=== PATIENT | male | born 1995 | race Caucasian/White ===

== ENCOUNTER 2023-01-27 22:29 | Emergency (ER) | payer OTHER ==
[2023-01-27 22:40] VITALS: TEMP 98
--- NOTE | 2023-01-27 22:58 | ED ---
General Adult HPI - General Chief complaint: Overdose Stated complaint: Overdose Time Seen by Provider: 01/27/23 22:47 Source: patient, RN notes reviewed, old records reviewed Mode of arrival: EMS Limitations: no limitations - History of Present Illness Initial comments: Patient is a 27-year-old male who presents emergency Department complaining of a opiate overdose. Took what he believes were 2 tabs 30 milligram Percocets, however he became unresponsive. EMS was called and they administered Narcan which did help the patient. He is currently back to his normal baseline mental status. Alert and oriented 4. States he did have one drink of alcohol earlier but no other drugs. Like to go home at this time. States he has Narcan at home. Denies any shortness of breath. He is not requiring any oxygen. Denies any chest pain, shortness breath, abdominal pain, nausea, vomiting.Patient states the 2 Percocets were not taken as a suicide attempt. Denies any suicidal ideations, attempts complaints. Denies any homicidal ideations, attempts, plans. Denies any hallucinations. - Related Data Allergies Allergy/AdvReac Type Severity Reaction Status Date / Time No Known Allergies Allergy Verified 01/27/23 22:40 Review of Systems ROS Statement: Those systems with pertinent positive or pertinent negative responses have been documented in the HPI. Review of Systems: CONST: Denies fever EYES: Denies blurry vision ENT: Denies nasal congestion C/V: Denies Chest pain RESP: Denies shortness of breath GI: Denies abdominal pain : Denies dysuria SKIN: Denies rash. MSK: Denies joint pain. NEURO: Denies headache ROS Other: All systems not noted in ROS Statement are negative. Past Medical History Past Medical History: Asthma Additional Past Medical History / Comment(s): hepatitis c History of Any Multi-Drug Resistant Organisms: None Reported Past Surgical History: No Surgical Hx Reported Past Psychological History: ADD/ADHD, Anxiety Smoking Status: Current every day smoker, Vaper Past Alcohol Use History: Occasional Past Drug Use History: Marijuana, Opiates General Exam - General Exam Comments Initial Comments: General: Appears in no acute distress. HEAD: Normal with no signs of head trauma. EYES: PERRLA, EOMI, conjunctiva normal, no discharge. Pupils are 1-2 mm and equal bilaterally. ENT: Hearing grossly intact, normal oropharynx. RESPIRATORY: Clear breath sounds bilaterally. No wheezes, rales, or rhonchi. No hypoxia. No respiratory distress. C/V: Regular rate and rhythm. S1 and S2 auscultated. Peripheral pulses 2+ intact throughout. ABD: Abd is soft, nontender, nondistended EXT: Normal range of motion, no obvious deformity SKIN: No rashes or lesions observed on exposed skin. NEURO: Alert and oriented 4. Limitations: no limitations Course Vital Signs 01/27/23 01/27/23 01/27/23 22:36 22:48 23:04 Temperature 98 F Pulse Rate 99 86 68 Respiratory 20 20 18 Rate Blood Pressure 126/84 124/86 134/60 O2 Sat by Pulse 98 96 98 Oximetry Medical Decision Making - Medical Decision Making Was pt. sent in by a medical professional or institution (, PA, BOOT MAKER, urgent care, hospital, or halfway...) When possible be specific @ -No Did you speak to anyone other than the patient for history (EMS, parent, family, police, friend...)? What history was obtained from this source @ -No Did you review nursing and triage notes (agree or disagree)? Why? @ -I reviewed and agree with nursing and triage notes Were old charts reviewed (outside hosp., previous admission, EMS record, old EKG, old radiological studies, urgent care reports/EKG's, halfway records)? Report findings @ -No old charts were reviewed Differential Diagnosis (chest pain, altered mental status, abdominal pain women, abdominal pain men, vaginal bleeding, weakness, fever, dyspnea, syncope, headache, dizziness, GI bleed, back pain, seizure, CVA, palpatations, mental health, musculoskeletal)? @ -Opiate overdose, accidental overdose, substance abuse, this list is not all- inclusive. EKG interpreted by me (3pts min.). @ -None done X-rays interpreted by me (1pt min.). @ -None done CT interpreted by me (1pt min.). @ -None done U/S interpreted by me (1pt. min.). @ -None done What testing was considered but not performed or refused? (CT, X-rays, U/S, labs)? Why? @ -Patient refusing testing as well as observation. What meds were considered but not given or refused? Why? @ -None Did you discuss the management of the patient with other professionals (professionals i.e. , PA, BOOT MAKER, lab, RT, psych nurse, social insurance analyst, camera tuning engineer, teacher, health promotion officer, clinical case manager)? Give summary @ -No Was smoking cessation discussed for >3mins.? @ -No Was critical care preformed (if so, how long)? @ -No Were there social determinants of health that impacted care today? How? (Homelessness, low income, unemployed, alcoholism, drug addiction, transportation, low edu. Level, literacy, decrease access to med. care, fdc, rehab)? @ -No Was there de-escalation of care discussed even if they declined (Discuss DNR or withdrawal of care, Hospice)? DNR status @ -No What co-morbidities impacted this encounter? (DM, HTN, Smoking, COPD, CAD, Cancer, CVA, ARF, Chemo, Hep., AIDS, mental health diagnosis, sleep apnea, morbid obesity)? @ -None Was patient admitted / discharged? Hospital course, mention meds given and route, prescriptions, significant lab abnormalities, going to OR and other pertinent info. @ -Based on the patient's presentation and physical exam, I do believe he likely had an acute opiate overdose occurring Narcan administration. He is currently back to his normal baseline mental status with no deficits. Ambulates without difficulty. States he is Narcan at home and does not want to wait here in the department for evaluation. BAT is 0. His no other acute complaints at this time. I did discuss with him that I would like him to remain here in the department for at least 1-2 hours to observe for any symptoms when the Narcan does wear off but he refuses at this time. We did discuss the risks involved. He would like to leave AGAINST MEDICAL ADVICE. Patient is not requiring any oxygen, is in no respiratory distress with normal vital signs. He is alert and oriented 4. Not a danger to himself or other. No concern for suicide attempt at this time. The patient was apprised of the potential risks of leaving the hospital AGAINST MEDICAL ADVICE, including serious complications, permanent disability, and . At the time of my interview the patient, the patient was alert, oriented, and capable. Patient signed AMA form, which was witnessed and signed by nursing staff, and placed in patient's chart. I urged the patient to return to the hospital as soon as possible to complete evaluation and treatment. Undiagnosed new problem with uncertain prognosis? @ -No Drug Therapy requiring intensive monitoring for toxicity (Heparin, Nitro, Insulin, Cardizem)? @ -No Were any procedures done? @ -No Diagnosis/symptom? @ -Opiate overdose Acute, or Chronic, or Acute on Chronic? @ -Acute Uncomplicated (without systemic symptoms) or Complicated (systemic symptoms)? @ -Uncomplicated Side effects of treatment? @ -No Exacerbation, Progression, or Severe Exacerbation? @ -No Poses a threat to life or bodily function? How? (Chest pain, [place], [place], pneumonia, PE, COPD, DKA, ARF, appy, cholecystitis, CVA, Diverticulitis, Homicidal, Suicidal, threat to staff... and all critical care pts) @ -No Diagnosis/symptom? @ -Left AGAINST MEDICAL ADVICE Acute, or Chronic, or Acute on Chronic? @ -Acute Uncomplicated (without systemic symptoms) or Complicated (systemic symptoms)? @ -Uncomplicated Side effects of treatment? @ -none Exacerbation, Progression, or Severe Exacerbation] @ -no Poses a threat to life or bodily function? @ -no Disposition Clinical Impression: Opiate overdose, Left against medical advice Disposition: Left Against Medical Advice Referrals: Trip Chavez MD [Primary Care Provider] - 1-2 days Time of Disposition: 22:58
[2023-01-27 23:07] VITALS: BP 134/60; PULSE 68; RESP 18
== END 2023-01-27 23:06 | disposition left against medical advice (07) ==
LOC: EC 22:29
DX: T40.601A Poisoning by unspecified narcotics, accidental (unintentional), initial encounter (principal); J45.909 Unspecified asthma, uncomplicated; F17.290 Nicotine dependence, other tobacco product, uncomplicated; F12.90 Cannabis use, unspecified, uncomplicated; Z53.29 Procedure and treatment not carried out because of patient's decision for other reasons
CPT/HCPCS: 82075; 99284